=== PATIENT | female | born 1980 | race Caucasian/White ===

== ENCOUNTER 2022-09-08 08:39 | Outpatient (CLI) | payer OTHER, SELFPAY ==
[2022-09-08 14:21] LABS: Albumin* 4.4 g/dL (3.3-5.0); Chloride* 106 mmol/L (96-114); Potassium* 4.3 mmol/L (3.6-5.1); Sodium* 137 mmol/L (135-149)
[2022-09-08 14:23] LABS: Cholesterol* 274 mg/dL (90-199)
[2022-09-08 14:24] LABS: Alanine Aminotransferase* 33 U/L (4-35); Alkaline Phosphatase* 69 U/L (40-150); Aspartate Amino Transferase* 37 U/L (12-35); Bilirubin Total* 0.7 mg/dL (0.1-1.5); Blood Urea Nitrogen* 10 mg/dL (5-24); Calcium* 9.1 mg/dL (8.4-10.6); Carbon Dioxide* 25 mmol/L (20-32); Creatinine* 0.7 mg/dL (0.5-1.5); Estimated Glomerular Filt Rate 112 ml/min; Glucose* 95 mg/dL (60-115); Triglycerides* 173 mg/dL (40-149)
[2022-09-08 14:25] LABS: HDL Cholesterol* 76 mg/dL (>=50); LDL Cholesterol Calculated 163 mg/dL (<100)
== END 2022-09-08 08:40 | disposition home or self-care (01) ==
PROVIDERS: PCP Physician Assistant Medical; Visit Provider Physician Assistant Medical
DX: Z00.00 Encounter for general adult medical examination without abnormal findings (principal); Z13.6 Encounter for screening for cardiovascular disorders; Z13.29 Encounter for screening for other suspected endocrine disorder
CPT/HCPCS: 80053; 80061; 84443

== ENCOUNTER 2022-12-02 11:13 | Outpatient (CLI) | payer OTHER, SELFPAY ==
--- NOTE | 2022-12-02 11:30 | CRLHL7_ITS ---
For Patients: As a result of the Cures Act, medical imaging exams and procedure reports are released immediately into your electronic medical record. You may view this report before your referring provider. If you have questions, please contact your health care provider. BILATERAL SCREENING MAMMOGRAM WITH COMPUTER-AIDED DETECTION AND TOMOSYNTHESIS TECHNIQUE: CC and MLO views were obtained. These mammographic images have been obtained using full-field digital technique. These mammographic images were interpreted with the benefit of computer-aided detection. Breast tomosynthesis was used in this interpretation. COMPARISON FILM: 04/30/20. FINDINGS: The breasts are heterogeneously dense, which may obscure small masses. IMPRESSION: There is no radiographic evidence for malignancy. ASSESSMENT: BI-RADS Category 1: Negative RECOMMENDATION: Routine screening mammogram in 1 year. A lay language report of this examination will be provided to the patient. ANTONETTE CAREY M.D. Diagnostic/Nuclear Medicine Radiologist [email or web address] TONJA:[email or web address] Transcribed: 12/03/2022, 2:[address]/Dictated by: Antonette Carey MD @ 12/03/2022 10:02:00 AM (Electronically Signed)
== END 2022-12-02 11:14 | disposition home or self-care (01) ==
LOC: MAMMO 11:14
PROVIDERS: PCP Physician Assistant Medical; Visit Provider Physician Assistant Medical
DX: Z12.31 Encounter for screening mammogram for malignant neoplasm of breast (principal); R92.2 Inconclusive mammogram
CPT/HCPCS: 77063; 77067

== ENCOUNTER 2023-07-06 08:56 | Outpatient (CLI) | payer OTHER, SELFPAY | END 2023-07-06 08:57 | disposition home or self-care (01) | PROVIDERS: PCP Physician Assistant Medical; Visit Provider Physician Assistant Medical | DX: Z02.6 Encounter for examination for insurance purposes (principal); R03.0 Elevated blood-pressure reading, without diagnosis of hypertension; Z13.6 Encounter for screening for cardiovascular disorders; Z13.0 Encounter for screening for diseases of the blood and blood-forming organs and certain disorders involving the immune mechanism; Z11.59 Encounter for screening for other viral diseases; Z13.1 Encounter for screening for diabetes mellitus | CPT/HCPCS: 80053; 80061; 80323; 82977; 86703; 86803 ==

== ENCOUNTER 2023-08-12 08:19 | Outpatient (CLI) | payer OTHER, SELFPAY | END 2023-08-12 08:20 | disposition home or self-care (01) | LOC: LKVREF 08:21 | PROVIDERS: PCP Physician Assistant Medical; Visit Provider Physician Assistant Medical | DX: E78.5 Hyperlipidemia, unspecified (principal); R73.01 Impaired fasting glucose | CPT/HCPCS: 80061 ==

== ENCOUNTER 2024-03-21 14:20 | Outpatient (CLI) | payer OTHER, SELFPAY ==
--- NOTE | 2024-03-21 14:40 | CRLHL7_ITS ---
For Patients: As a result of the Century Cures Act, medical imaging exams and procedure reports are released immediately into your electronic medical record. You may view this report before your referring provider. If you have questions, please contact your health care provider. BILATERAL DIGITAL SCREENING MAMMOGRAM WITH COMPUTER-AIDED DETECTION AND TOMOSYNTHESIS CLINICAL HISTORY: Routine screening exam. COMPARISON: 12/02/2022, 04/30/2020. TECHNIQUE: Digital mammogram in CC and MLO projections including computer-aided detection (CAD). Tomosynthesis was used in this interpretation. BREAST COMPOSITION: The breasts are heterogeneously dense, which may obscure small masses. FINDINGS: RIGHT Breast: Focal nodular density lateral breast 9 o`clock 7 cm from the nipple. LEFT Breast: No suspicious findings. IMPRESSION: RIGHT breast asymmetry/mass. RECOMMENDATIONS: Additional mammographic views of the RIGHT breast including 3D spot compression CC/MLO. RIGHT breast ultrasound may also be required. BI-RADS Category 0: Incomplete: Need Additional Imaging Evaluation and/or Prior Mammograms for Comparison The [facility] will contact the patient for follow-up. A lay language report of this examination will be provided to the patient. Dictated by Boubacar Bueno MD @ 03/22/2024 9:55:52 AM jj/Dictated by: Boubacar Bueno MD @ 03/22/2024 9:55:00 AM (Electronically Signed)
== END 2024-03-21 14:21 | disposition home or self-care (01) ==
LOC: MAMMO 14:20
PROVIDERS: PCP Physician Assistant Medical; Visit Provider Physician Assistant Medical
DX: Z12.31 Encounter for screening mammogram for malignant neoplasm of breast (principal); N63.10 Unspecified lump in the right breast, unspecified quadrant; R92.2 Inconclusive mammogram
CPT/HCPCS: 77063; 77067

== ENCOUNTER 2024-03-28 09:31 | Outpatient (CLI) | payer OTHER, SELFPAY ==
--- NOTE | 2024-03-28 09:45 | CRLHL7_ITS ---
For Patients: As a result of the Cures Act, medical imaging exams and procedure reports are released immediately into your electronic medical record. You may view this report before your referring provider. If you have questions, please contact your health care provider. DIGITAL DIAGNOSTIC RIGHT MAMMOGRAM USING TOMOSYNTHESIS AND COMPUTER-AIDED DETECTION RIGHT BREAST ULTRASOUND CLINICAL HISTORY: RIGHT breast mass/asymmetry. COMPARISON: 03/21/2024. TECHNIQUE: Digital RIGHT mammogram in two projections with computer-aided detection. Tomosynthesis was used in this interpretation. Real-time ultrasound imaging of RIGHT breast with imaging documentation. BREAST COMPOSITION: The breast is heterogeneously dense, which may obscure small masses. FINDINGS: 3D spot compression CC/MLO RIGHT breast mammogram images submitted. Persistent nodular density within the upper outer quadrant. No architectural distortion. No suspicious calcifications. Targeted RIGHT breast ultrasound performed at 10 o`clock 7 cm from the nipple. Benign intramammary lymph node is present measuring 7 x 4 x 6 millimeters. No suspicious findings. IMPRESSION: Benign intramammary lymph node RIGHT breast 10 o`clock 7 cm from the nipple measuring 7 millimeters. No evidence of malignancy. RECOMMENDATIONS: Annual BILATERAL screening mammography. Results and recommendations discussed with the patient. BI-RADS Category 2: Benign A lay language report of this examination will be provided to the patient. Dictated by Boubacar Bueno MD @ 03/28/2024 10:51:06 AM /Dictated by: Boubacar Bueno MD @ 03/28/2024 10:51:00 AM (Electronically Signed)
--- NOTE | 2024-03-28 10:15 | CRLHL7_ITS ---
For Patients: As a result of the Cures Act, medical imaging exams and procedure reports are released immediately into your electronic medical record. You may view this report before your referring provider. If you have questions, please contact your health care provider. PLEASE SEE DIGITAL DIAGNOSTIC RIGHT MAMMOGRAM PERFORMED SAME DAY CRL:[email or web address] lazar/Dictated by: Boubacar Bueno MD @ 03/28/2024 10:51:00 AM (Electronically Signed)
== END 2024-03-28 09:32 | disposition home or self-care (01) ==
LOC: MAMMO 09:32
PROVIDERS: PCP Physician Assistant Medical; Visit Provider Physician Assistant Medical
DX: N63.10 Unspecified lump in the right breast, unspecified quadrant (principal); R92.8 Other abnormal and inconclusive findings on diagnostic imaging of breast
CPT/HCPCS: 76642; 77065; G0279

== ENCOUNTER 2024-09-05 12:16 | Outpatient (CLI) | payer OTHER, SELFPAY ==
[2024-09-06 00:18] LABS: Chlamydia DNA Amplified* NOT DETECTED (No Detected); GC DNA Amplified* NOT DETECTED (No Detected)
[2024-09-07 16:22] LABS: HPV Source Cervix; HPV, High Risk by TMA Not Detected
== END 2024-09-05 12:17 | disposition home or self-care (01) ==
PROVIDERS: PCP Physician Assistant Medical; Visit Provider Physician Assistant Medical
DX: R10.2 Pelvic and perineal pain (principal); R03.0 Elevated blood-pressure reading, without diagnosis of hypertension; Z13.6 Encounter for screening for cardiovascular disorders; Z13.29 Encounter for screening for other suspected endocrine disorder; Z13.1 Encounter for screening for diabetes mellitus; Z11.3 Encounter for screening for infections with a predominantly sexual mode of transmission; Z11.51 Encounter for screening for human papillomavirus (HPV)
CPT/HCPCS: 80053; 80061; 84443; 87491; 87591; 87624; 87625; 88141; 88142

== ENCOUNTER 2024-09-19 10:59 | Outpatient (CLI) | payer OTHER, SELFPAY | END 2024-09-19 11:00 | disposition home or self-care (01) | PROVIDERS: PCP Physician Assistant Medical; Visit Provider Physician Assistant Medical | DX: R10.2 Pelvic and perineal pain (principal) | CPT/HCPCS: 76830; 76856; 93976 ==

== ENCOUNTER 2025-03-29 09:56 | Outpatient (CLI) | payer OTHER, SELFPAY ==
--- NOTE | 2025-03-29 10:15 | CRLHL7_ITS ---
For Patients: As a result of the Century Cures Act, medical imaging exams and procedure reports are released immediately into your electronic medical record. You may view this report before your referring provider. If you have questions, please contact your health care provider. INDICATION: BILATERAL SCREENING MAMMMOGRAM, ASYMPTOMATIC 44 Y/O FEMALE COMPARISON: 03/28/2024, 03/21/2024, 12/02/2022 TECHNIQUE: Digital mammogram in CC and MLO projections including computer-aided detection (CAD) and tomosynthesis. BREAST COMPOSITION: There are scattered areas of fibroglandular density. FINDINGS: No suspicious findings. ASSESSMENT: BI-RADS 1 Negative RECOMMENDATION: Annual screening mammogram. A lay language report of this examination will be provided to the patient. Dictated by: Tamar Bowen MD @ 03/29/2025 19:44:41 (Electronically Signed)
== END 2025-03-29 09:57 | disposition home or self-care (01) ==
LOC: MAMMO 09:57
PROVIDERS: PCP Physician Assistant Medical; Visit Provider Physician Assistant Medical
DX: Z12.31 Encounter for screening mammogram for malignant neoplasm of breast (principal)
CPT/HCPCS: 77063; 77067